=== PATIENT | female | born 1965 | race Caucasian/White ===

== ENCOUNTER 2018-05-08 13:18 | Emergency (ER) | payer OTHER ==
[2018-05-08 13:25] VITALS: BMI 23.6
[2018-05-08] MEDS ORDERED: SODIUM CHLORIDE 0.9% 500 ML INFUS.BAG IV ONE (15:33)
[2018-05-08] MEDS ORDERED: ACETAMINOPHEN 1000 MG/100 ML VIAL (NON FORMULARY) IVPB ONE (15:41)
[2018-05-08] MEDS ORDERED: ACETAMINOPHEN INJECTION 100 ML IVPB ONE (16:40)
[2018-05-08 16:54] VITALS: TEMP 98.9
[2018-05-08] MEDS ORDERED: METOCLOPRAMIDE HCL INJECTION 10 MG/2 ML VIAL IVPUSH ONE (17:02)
--- NOTE | 2018-05-08 17:04 | PDOC ---
Attending Attestation - HPI HPI: 05/08/18 18:44 The patient is a 52 year old female with no significant PMH who presents to the emergency department with frontal headache and elevated blood pressure. Patient' s BP in ther ER is 145/110. The patient states her headaches typically resolve with motrin but the headache today has not resolved after motrin. The patient denies chest pain, shortness of breath, and dizziness. Denies fever, chills, nausea, vomit, diarrhea and constipation. Denies dysuria, frequency, urgency and hematuria. Allergies: penicillins Past surgical history: None reported. Social history: No reported alcohol, drug or cigarette use. PCP: Dr. Garsia - Physicial Exam PE: 05/08/18 18:43 ADULT PHYSICAL EXAM Constitutional: Awake, alert, oriented. No acute distress. Head: Normocephalic. Atraumatic Eyes: PERRL. EOMI. Conjunctivae are not pale. ENT: Mucous membranes are moist and intact. Posterior pharynx without exudates or erythema. Uvula midline. Neck: Supple. Full ROM. No lymphadenopathy. Cardiovascular: Regular rate. Regular rhythm. S1, S2 regular. Distal pulses are 2+ and symmetric. Pulmonary/Chest: No evidence of respiratory distress. Clear to auscultation bilaterally No wheezing, rales or rhonchi. Abdominal: Soft and non-distended. There is no tenderness. No rebound, guarding or rigidity. No organomegaly. No palpable masses. Good bowel sounds. Back: No CVA tenderness. Musculoskeletal: No edema. No cyanosis. No clubbing. Full range of motion in all extremities. Nocalf tenderness. Radial/pedal pulses are intact and 2+ bilaterally Skin: Skin is warm and dry. No petechiae. No purpura. Neurological: Alert and oriented to person, place, and time. Cranial nerves II -XII are grossly intact. Normal speech. Strength is grossly symmetric. No sensory deficits. Psychiatric: Good eye contact. Normal interaction, affect and behavior. <Asha Hernandez - Last Filed: 05/08/18 19:16> - Resident Resident Name: Brock Quigley - ED Attending Attestation I have performed the following: I have examined & evaluated the patient, The case was reviewed & discussed with the resident, I agree w/resident's findings & plan, Exceptions are as noted - Medical Decision Making 05/08/18 17:02 I, Dr. Yudy Almeida, DO, attest that this document has been prepared under my direction and personally reviewed by me in its entirety. I further attest, that it accurately reflects all work, treatment, procedures and medical decision -making performed by me. 05/08/18 17:02 a/p: 52yo female with frontal headache today and elevated BP -will check labs -head ct -new dentures so decreased PO intake and has been drinking protein shakes -neuro intact BP 164/112 -will check UA -no visual changes, no temporal ttp -headache 2 days ago resolved with motrin and headache today -will medicate for pain -will monitor and reassess 05/08/18 20:07 re-eval: pt states feeling much better no hansen at this time bp much improved will need outpt follow up with her PMD for repeat BP check 05/08/18 20:12 labs reviewed pt stable for d/c to home discussed follow up with her PMD for repeat bp check answered all questions will give neuro follow up for hansen <Yudy Almeida - Last Filed: 05/08/18 20:14>
--- NOTE | 2018-05-08 17:15 | PDOC ---
History of Present Illness - General Chief Complaint: Headache Stated Complaint: ELEVATED BP/HEADACHE Time Seen by Provider: 05/08/18 15:51 - History of Present Illness Initial Comments: Previously healthy 52 year old female presenting with three days of frontal head pressure and hypertension of 162/110s at urgent care. Describes her headache as bilateral, frontal pressure, and 5/10 without visual symptoms, nausea, vomiting, gait issues, or FND. Denies fees, chills, nausea, vomiting, diarrhea, constipation, chest pain, SOB, or other issues. She is overall very healthy but has noticed that her blood pressure has been increasing over the past few visits to her PCP and she has family history of HTN as well. She has recently had gum surgery two weeks ago and has decreased PO intake as well. 05/08/18 17:10 Past History - Past Medical History Allergies/Adverse Reactions: Allergies Allergy/AdvReac Type Severity Reaction Status Date / Time Penicillins Allergy Mild Rash Verified 05/08/18 13:25 Home Medications: Ambulatory Orders NK [No Known Home Medication] 05/08/18 COPD: No - Immunization History Immunization Up to Date: Yes - Suicide/Smoking/Psychosocial Hx Smoking History: Never smoked Have you smoked in the past 12 months: No Information on smoking cessation initiated: No Hx Alcohol Use: No Drug/Substance Use Hx: No Substance Use Type: None Review of Systems - Review of Systems Constitutional: No: Chills, Diaphoresis, Fever HEENTM: No: Blurred Vision, Double Vision Respiratory: No: Cough, Shortness of Breath, Wheezing, Productive cough Cardiac (ROS): No: Chest Pain, Edema, Irregular Heart Rate ABD/GI: No: Constipated, Diarrhea, Nausea, Vomiting : No: Burning, Dysuria, Discharge, Hematuria Musculoskeletal: No: Muscle Pain, Muscle Weakness Integumentary: No: Bruising, Flushing Neurological: Yes: Headache. No: Numbness, Paresthesia, Tremors, Weakness Psychiatric: No: Anxiety, Depression Endocrine: No: Flushing *Physical Exam - Vital Signs Last Vital Signs Temp Pulse Resp BP Pulse Ox 98.9 F 94 H 18 145/110 100 05/08/18 16:54 05/08/18 16:54 05/08/18 16:54 05/08/18 17:08 05/08/18 16:54 - Physical Exam General Appearance: Yes: Nourished, Appropriately Dressed. No: Apparent Distress HEENT: positive: EOMI, ALICIA, Normal ENT Inspection, Normal Voice Neck: positive: Trachea midline, Normal Thyroid, Supple. negative: Tender, Rigid Respiratory/Chest: positive: Lungs Clear, Normal Breath Sounds. negative: Chest Tender, Respiratory Distress, Accessory Muscle Use Cardiovascular: positive: Regular Rhythm, Regular Rate Gastrointestinal/Abdominal: positive: Normal Bowel Sounds, Flat, Soft. negative : Tender Lymphatic: negative: Adenopathy, Tenderness Musculoskeletal: positive: Normal Inspection. negative: CVA Tenderness, Decreased Range of Motion Extremity: positive: Normal Capillary Refill, Normal Inspection, Normal Range of Motion. 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-XII NML intact, Fully Oriented, Alert, Normal Mood/ Affect, Normal Response, Motor Strength 03/22 ED Treatment Course - LABORATORY CBC & Chemistry Diagram: 05/08/18 15:36 05/08/18 15:36 - RADIOLOGY Radiology Studies Ordered: Category Date Time Status HEAD CT WITHOUT CONTRAST [CT] Stat CT Scan 05/08/18 15:41 Ordered - Medications Given in the ED: ED Medications Discontinued Medications Generic Name Dose Route Start Last Admin Trade Name Freq PRN Reason Stop Dose Admin Acetaminophen 1,000 mg 05/08/18 15:41 05/08/18 16:41 Ofirmev Injection - IVPB 05/08/18 15:42 1,000 mg ONCE ONE Administration Sodium Chloride 1,000 ml 05/08/18 15:33 05/08/18 15:36 Normal Saline - IV 05/08/18 15:34 1,000 ml ONCE ONE Administration Medical Decision Making - Medical Decision Making 52 year old female with no PMH presenting with HTN to 160s/110s and frontal headache. Head CT negative, basic labs negative, and headache improved after toradol, IV NS, ofirmev, and reglan. BP also improved to 130s /80s. Patient will be discharged with Neuro follow up. 05/08/18 19:19 *DC/Admit/Observation/Transfer Diagnosis at time of Disposition: Hypertension Qualifiers: Hypertension type: unspecified Qualified Code(s): I10 - Essential (primary) hypertension Headache Qualifiers: Headache type: unspecified Headache chronicity pattern: acute headache Intractability: not intractable Qualified Code(s): R51 - Headache - Discharge Dispostion Disposition: HOME Condition at time of disposition: Improved - Referrals Referrals: Marshall Garsia [Primary Care Provider] - Emanuel Flores MD [Staff Physician] - - Patient Instructions Printed Discharge Instructions: DI for Headache Additional Instructions: Please stay hydrated and eat food. Please use ibuprofen/ Tylenol for your headaches. Please see the neurologist for your headaches. - Post Discharge Activity Forms/Work/School Notes: Back to Work
[2018-05-08] MEDS ORDERED: METOCLOPRAMIDE HCL INJECTION 10 MG/2 ML VIAL ONE (17:45)
[2018-05-08] MEDS ORDERED: KETOROLAC TROMETHAMINE 15 MG/ML VIAL IVPUSH ONE (18:51)
[2018-05-08 18:56] VITALS: BP 138/88; PULSE 60
[2018-05-08] MEDS ORDERED: KETOROLAC TROMETHAMINE 15 MG/ML VIAL ONE ×2 (18:58→19:01)
[2018-05-08 19:19] LABS: BASO % 0.5 % (0-2.0); EOS % 0.5 % (0-4.5); HEMATOCRIT 45.6 % (32.4-45.2); HEMOGLOBIN 14.6 GM/dL (10.7-15.3); LYMPH % 15.2 % (8-40); MCH 28.3 pg (25.7-33.7); MCHC 32.1 g/dl (32.0-36.0); MEAN PLT VOLUME 9.6 fl (7.5-11.1); MONO % 4.6 % (3.8-10.2); NEUT % 79.2 % (42.8-82.8); PLATELET COUNT 285 K/MM3 (134-434); RBC 5.18 M/mm3 (3.60-5.2); WHITE BLOOD COUNT 7.3 K/mm3 (4.0-10.0)
[2018-05-08 20:01] LABS: ALBUMIN 4.6 g/dl (3.4-5.0); ANION GAP 7 (8-16); BLOOD UREA NITROGEN 16 mg/dL (7-18); CALCIUM 9.8 mg/dL (8.5-10.1); CHLORIDE 107 mmol/L (98-107); CO2 26 mmol/L (21-32); GLUCOSE,RANDOM 80 mg/dL (74-106); POTASSIUM 4.7 mmol/L (3.5-5.1); SODIUM 140 mmol/L (136-145)
[2018-05-08 20:04] LABS: BILIRUBIN,TOTAL 0.5 mg/dL (0.2-1.0); CREATININE 0.8 mg/dL (0.55-1.02); SGOT/AST 23 U/L (15-37); SGPT/ALT 22 U/L (12-78); TOT PROT 8.5 g/dl (6.4-8.2)
[2018-05-08 20:05] LABS: ALK PHOS 107 U/L (45-117)
== END 2018-05-08 20:33 | disposition home or self-care (01) ==
LOC: JER 13:18
PROC: 3E033NZ Introduction of Analgesics, Hypnotics, Sedatives into Peripheral Vein, Percutaneous Approach (ICD-10-PCS; principal; 2018-05-08)
DX: I10 Essential (primary) hypertension (principal)
CPT/HCPCS: 36415; 70450-TC; 80053; 85025; 99282-25; J0131